=== PATIENT | female | born 1950 | race Caucasian/White ===

== ENCOUNTER → 2016-05-13 | Outpatient (CLI) | payer OTHER ==
[~2016-05-13] MED LIST: ACTOS 30 MG TAB30 MG PO; GLUCOPHAGE500 MG PO; NORCO 5-325 TA1 EACH PO
== END ==
LOC: CAT 02:56
DX: R91.1 Solitary pulmonary nodule (principal); K76.0 Fatty (change of) liver, not elsewhere classified

== ENCOUNTER → 2016-05-22 | Outpatient (CLI) | payer OTHER | LOC: RAD 14:29 | DX: M47.814 Spondylosis without myelopathy or radiculopathy, thoracic region (principal); M47.816 Spondylosis without myelopathy or radiculopathy, lumbar region; M54.5 Low back pain ==

== ENCOUNTER → 2016-05-27 | Outpatient (CLI) | payer OTHER | LOC: PET 12:15 | DX: R91.8 Other nonspecific abnormal finding of lung field (principal) ==

== ENCOUNTER → 2016-06-02 | Outpatient (CLI) | payer OTHER | LOC: ULTRA 12:16 | DX: M79.89 Other specified soft tissue disorders (principal); M79.604 Pain in right leg; M79.605 Pain in left leg ==

== ENCOUNTER 2016-06-11 05:29 | Day surgery (SDC) | payer OTHER ==
[~2016-06-11] VITALS: Ht 162.6 cm; Wt 120.2 kg
--- NOTE | ~2016-06-11 | CNG ---
[facility] [place] [address] CYTO-NONGYN REPORT PROCEDURE Name: ALEE SUBRAMANIAN Room #: DEP [facility]..#: [id number] Admission: 06/11/16 Date of : 46 Discharge: 06/11/16 Report #: [id number] Path Case #: [id number] CYTOPATHOLOGY REPORT COLLECTION DATE: 06/11/2016 RECEIVED DATE: 06/11/2016 SUBMITTING PHYS: Dr. Angelito Canales OTHER PHYS: Dr. Gibson Nunez CLINICAL HISTORY: Lung mass. See also [id number] PROCEDURE: A. Three passes performed by Dr. Canales yielding bloody fluid fixed in formalin. Two H and E slides submitted to lab. B. Six passed performed by Dr. Canales yielding bloody fluid fixed in formalin. Two H and E slides submitted to lab. SPECIMEN(S) RECEIVED: A.EBUS guided Fine needle aspiration, Node 11, passes1-3 B.EBUS guided Fine needle aspiration, Node 7, passes1-3 * * * * * * * * * * * * FINAL DIAGNOSIS: A. Lymph node, Node 11, passes1-3, EBUS guided Fine needle aspiration: No malignant cells identified Abundant lymphocytes and macrophages in the background, consistent with aspiration of a lymph node. B. Tissue designated as lymph node, Node 7, passes1-6, EBUS guided Fine needle aspiration: SCANT MALIGNANT CELLS IDENTIFIED WITH FEATURES OF SQUAMOUS CELL CARCINOMA. No lymphoid tissue present in the background. COMMENT: Most of the cell block material prepared from the fixative is comprised of blood. Immunohistochemical stains are performed on cell block B. TTF1: non-reactive P40: strong nuclear reactivity present [place]: Dr. Anya Castillo. Dr. Canales notified at 9:50 Am on 06/12/16 of the findings. (IUV; 06/12/16) PATHOLOGIST: Eunice Wilson M.D. REPORT ELECTRONICALLY SIGNED BY: Eunice Wilson M.D. DATE/TIME: 06/12/2016 12:55 * * * * * * * * * * * * GROSS PATHOLOGY: [address] [address] CYTO-NONGYN REPORT PROCEDURE Name: ALEE SUBRAMANIAN Room #: DEP [facility].#: [id number] Admission: 06/11/16 Date of : 46 Discharge: 06/11/16 Report #: [id number] Path Case #: [id number] A. EBUS guided Fine needle aspiration, Node 11, passes1-3: The specimen is labeled "Alee Subramanian" and consists of 2 H and E slides. Fifteen mL of bloody material in formalin from the needle rinse is also submitted and one cell block was prepared from this material. (kg) B. EBUS guided Fine needle aspiration, Node 7 passes1-6: The specimen is labeled "Alee Subramanian" and consists of 2 H and E slides. Fifteen mL of bloody material in formalin from the needle rinse is also submitted and one cell block was prepared from this material. (kg 06/11/16) IMMEDIATE EVALUATION: A. EBUS FNA Node [address] Wilson: Lymphoid tissue present. B. EBUS FNA Node [address] Wilson: Lesional material present. TOOL PROCUREMENT COORDINATOR(S): Vicenta Calderon, CT(ASCP), IAC INITIAL CPT CODE(S): A; 33536, 66586, 00810 B; 42017, 73995, 44987, 59787, 76760 Professional services performed by [facility] at [facility] [address], [place] [address] Technical services performed by [facility] at [address] [place] [address]., [address], [place] [address]. [facility], [address] [place] [address] PHONE: [phone] DIRECTOR: Lionel Mars M.D. * * * END OF REPORT * * *
--- NOTE | ~2016-06-11 | EKG ---
[address] [address] ELECTROCARDIOGRAM REPORT Name: GUERA BARAJAS Room #: 150-3 [facility]#: [id number] Admission: 06/11/16 Attend Phys: Angelito Canales MD Discharge: Date of : 46 Report #: [id number] THIS REPORT FOR: //name// [facility] Test Date: 2016-06-11 Test Time: 06:41:41 Pat Name: GUERA BARAJAS Department: Room: 150 3 Gender: F Welfare Administrator: MC : 1950 Requested By: Angelito Canales Order Number: [id number] MD: David Butler Measurements Intervals [place] Rate: 110 P: 26 PA: 171 QRS: -52 QRSD: 103 T: 66 QT: 333 QTc: 451 Interpretive Statements Sinus tachycardia Inferior infarct, old Anterior infarct, old No previous ECG available for comparison Electronically Signed On 06-11-2016 8:37:04 CDT by David Butler [email or web address] <ELECTRONICALLY SIGNED> By: David Butler MD, [facility] 06/11/16 0837 0641 0 David Butler MD, FACC /EPI
--- NOTE | ~2016-06-11 | P ---
[facility] [place] [address] PROCEDURE REPORT Name: GUERA BARAJAS Room #: DEP [facility] M..#: [id number] Admission: 06/11/16 Attend Phys: Angelito Canales MD Discharge: 06/11/16 Date of : 46 Report #: [id number] THIS REPORT FOR: //name// CC: Angelito Sweet MD DATE OF SERVICE: 06/11/2016 PROCEDURE: Under general endotracheal anesthesia, fiberoptic bronchoscopy with white light bronchoscope with forceps biopsies of the right upper lobe as well as endobronchial ultrasound evaluation of the mediastinum and sampling of 11L and 7 lymph node stations with fine needle aspirates, ASA classification class II. PROCEDURE NOTATION: After discussing risks, benefits of planned procedure with the patient, she desired to proceed. After obtaining informed consent, she was brought to the OR room 2 by Anesthesia service and placed under general endotracheal anesthesia with an 8.5 endotracheal tube. Please see anesthesia notes for further details on anesthesia. Once accomplished, the white light bronchoscope was inserted into the endotracheal tube until the distal trachea was seen. Endotracheal tube was repositioned to allow optimal evaluation of the airways. White light bronchoscopy then performed for airway surveillance. FINDINGS: Mainstem, lobar, segmental and subsegmental bronchi were all explored as best able bilaterally without difficulty. Left-sided structures appeared normal. There were some splaying of the distal mary beth. Right upper lobe was very narrowed at the orifice between the right upper lobe and bronchus intermedius. There was significant edema and maybe some submucosal swelling appreciated. The right upper lobe was difficult to evaluate as it was difficult to get the bronchoscope pass the narrowing. Middle lobe also appeared to have similar features. No other significant endobronchial mass was noted. At the end of the procedure, several biopsies were obtained of this area in the right upper lobe. White light bronchoscope was then removed and endobronchial ultrasound was inserted. In traditional fashion, lymph node stations were evaluated. The following findings were noted: 10R station had an 8 mm lymph node. Level 7 had 29 mm lymph node. 4R station had 16 mm lymph node as well as a 4R 8 mm lymph node noted. No 4L lymph nodes were appreciated. 10L had a 7 mm lymph node. 11L station had 2 lymph nodes, one 9 mm and 6 mm. The 9 mm 11L lymph node was sampled with rapid onsite pathology confirming good lymphatic tissue. A total of 3 passes with a 22-gauge needle were obtained in the 11L station. Bronchoscope was then positioned to sample level 7 lymph node. A 22 gauge lymph node FNA was performed and then, 5 samples with a 22 gauge core needle were obtained once pathology confirmed material. The endobronchial ultrasound was then removed and as previously mentioned, this white light bronchoscope was inserted at the end of procedure to provide additional biopsy [address] [address] PROCEDURE REPORT Name: JENNGUERARUSTAM VILLASENOR Room #: DEP [facility] Francis#: [id number] Admission: 06/11/16 Attend Phys: Angelito Canales MD Discharge: 06/11/16 Date of : 46 Report #: [id number] material from the right upper lobe. The patient tolerated well with no noted complications with minimal bleeding appreciated. IMPRESSION: Right lower lobe mass with extensive mediastinal lymphadenopathy with biopsies as described above. PLAN: Await pathology. By: 0949 1940 Angelito Canales MD /nt
--- NOTE | ~2016-06-11 | S ---
[facility] [address] [place] [address] SURGICAL PATH RPT PROCEDURE Name: GUERA BARAJAS Room #: DE[place] [facility] MD[place]rios[place].#: [id number] Admission: 06/11/16 Date of : 46 Discharge: 06/11/16 Report #: [id number] Path Case #: [id number] PATHOLOGY REPORT DRAFT COLLECTION DATE: 06/11/2016 RECEIVED DATE: 06/11/2016 SPECIMEN(S) RECEIVED: Doc DIAZ
[~2016-06-11 05:29] MED LIST changes: +ACTOS 30 MG TAB30 M2 PO; +ASPIRIN81 M2 PO; +ELEMENTAL CALC600 MG PO; +FISH OIL300 MG PO; +GLIPIZIDE ER10 MG PO; +LIPITOR 20 MG T20 M1 PO; +LISINOPRIL20 MG PO; +NORVASC2.5 MG PO; +PAROXETINE HCL30 MG PO; +SPIRIVA RESPIMAT4 GM INH; +VENTOLIN HFA 1818 GM INH; +VITAMIN E400 UNIT PO; +VITAMINC500 PO; +XOPENEX HF1 UDINHALE IH
[2016-06-11 06:45] VITALS: BP 135/74
[2016-06-11 12:59] LABS: ABG SAMPLE TYPE ARTERIAL; BE(vivo) -3.8 mmol/L (-2 to +3); HCO3 20.2 mmol/L (22.0-26.0); LACTATE 1.67 mmol/L (0.5-2.0); O2(CT) 17.7 mL/dL (15.0-23.0); O2Hb 87.4 % (92.0-98.0); PCO2 33.7 mmHg (35.0-45.0); PO2 58.7 mmHg (80.0-100.0); STICK SITE L.BRACHIAL; pH 7.395 (7.360-7.450); sO2 90.6 % (92.0-98.0); tCO2 21.2 mmol/L (24.0-30.0)
== END 2016-06-11 15:25 | disposition home or self-care (01) ==
LOC: OR 05:29 → TBA 05:29 → OR 09:01
PROVIDERS: Internal Medicine Pulmonary Disease
DX: R91.8 Other nonspecific abnormal finding of lung field (principal); R59.1 Generalized enlarged lymph nodes; F41.9 Anxiety disorder, unspecified; F32.9 Major depressive disorder, single episode, unspecified; F17.210 Nicotine dependence, cigarettes, uncomplicated; J44.9 Chronic obstructive pulmonary disease, unspecified; I10 Essential (primary) hypertension; E78.00 Pure hypercholesterolemia, unspecified; G47.33 Obstructive sleep apnea (adult) (pediatric); E11.9 Type 2 diabetes mellitus without complications; Z90.49 Acquired absence of other specified parts of digestive tract; Z90.710 Acquired absence of both cervix and uterus
CPT/HCPCS: 62110; 62900; 70005